=== PATIENT | female | born 1945 | race Two or more races ===

== ENCOUNTER 2018-04-25 09:32 | Emergency (ER) | payer OTHER ==
[~2018-04-25] VITALS: Ht 180.3 cm; Wt 103.4 kg
[~2018-04-25 09:32] MED LIST: AMPICILLIN IV; D5W IV; DEPO-MEDROL40 MG/ML IJ; HumaLOG 100 UNIT/1 ML (3ML) SUBCUTANEO; Lantus 1000 U/10 ML SUBCUTANEO; MAALOX PO; NEURONTIN PO; Pepcid 20 MG TABLET PO; SULBACTAM IV; VANCOCIN 1GM/VIALMATE IV; [UNRECOGNIZED DRUG - OTHER] IJ; [UNRECOGNIZED DRUG - OTHER] IV
[2018-04-25] MEDS ORDERED: HUMALOG100 UNIT/1 (09:59)
[2018-04-25] MEDS ORDERED: LANTUS SOL100 UNIT/1 (09:59)
[2018-04-25] MEDS ORDERED: PROTONIX40 MG (10:00)
[2018-04-25] MEDS ORDERED: COZAAR50 MG (10:00)
[2018-04-25] MEDS ORDERED: GLIMEPIRIDE4 MG (10:01)
[2018-04-25] MEDS ORDERED: NEURONTIN800 MG (10:02)
[2018-04-25] MEDS ORDERED: PREVACID30 M1 (10:02)
[2018-04-25] MEDS ORDERED: TRAMADOL HCL100 MG (10:02)
== END 2018-04-25 14:37 | disposition home or self-care (01) ==
LOC: ER 09:32
DX: M54.32 Sciatica, left side (principal)